=== PATIENT | male | born 1960 | race Caucasian/White ===

== ENCOUNTER 2019-09-14 21:36 | Inpatient (IN) ==
[2019-09-14] MEDS ORDERED: SODIUM CHLORIDE 0.9% 1000ML 2,000 ML IV SCH (22:00)
[2019-09-14 22:06] LABS: Basophils # (auto) 0.02 K/uL (0-0.2); Basophils % (auto) 0.1 %; Eosinophils # (auto) 0.25 K/uL (0-0.5); Eosinophils % (auto) 1.3 %; Hematocrit (blood only) 63.7 % (42-52); Hemoglobin 23.7 g/dL (14.0-18.0); Immature Granulocytes # (auto) 0.14 K/uL (0.00-0.02); Immature Granulocytes % (auto) 0.7 %; Lymphocytes # (auto) 2.23 K/uL (1.2-3.4); Lymphocytes % (auto) 11.4 %; Mean Corpuscular Hemoglobin 31.4 pg (25-34); Mean Corpuscular Volume 84.5 fL (80-100); Mean Platelet Volume 11.2 fL (7.4-10.4); Monocytes # (auto) 1.61 K/uL (0.11-0.59); Monocytes % (auto) 8.2 %; Neutrophils # (auto) 15.33 K/uL (1.4-6.5); Neutrophils % (auto) 78.3 %; Platelet Count 300 K/uL (130-400); RDW Coefficient of Variation 12.7 % (11.5-14.5); RDW Standard Deviation 38.6 fL (36.4-46.3); Red Blood Count 7.54 M/uL (4.7-6.1); White Blood Count 19.58 K/uL (4.8-10.8)
[2019-09-14 22:34] LABS: Mean Corpuscular Hgb Conc 37.2 g/dL (32-36)
--- NOTE | 2019-09-14 22:34 | XRay Report ---
XR chest 1V portable CLINICAL HISTORY: weakness COMPARISON STUDY: No previous studies for comparison. FINDINGS: The chest has an emphysematous configuration. The heart is normal in size. Interstitial pro minence towards the lung bases, likely represents vascular redistribution given the upper lobe emphys billy. There is no lobar consolidation. There are no significant pleural effusions.[ IMPRESSION: Suspected pulmonary emphysema. No evidence of focal pulmonary consolidation ACT 112: Negative or not required by law. Electronically signed by: Prasanna Fraser M.D. 09/14/2019 10:32 PM
[2019-09-14 22:36] LABS: Alanine Aminotransferase 50 U/L (12-78); Albumin Globulin Ratio 1.2 (0.9-2); Albumin Level 4.5 gm/dl (3.4-5.0); Alkaline Phosphatase 53 U/L (45-117); Aspartate Aminotransferase 27 U/L (15-37); BUN Creatinine Ratio 11.5 (10-20); Bilirubin,Total 0.7 mg/dl (0.2-1); Blood Urea Nitrogen 31 mg/dl (7-18); Carbon Dioxide 18 mmol/L (21-32); Chloride 97 mmol/L (98-107); Creatine Kinase 30 U/L (39-308); Creatinine Clr Calc Pharmacy 34.4 ml/min; Globulin 3.9 gm/dl (2.5-4.0); Glucose 212 mg/dl (70-99); Magnesium 1.6 mg/dl (1.8-2.4); Potassium 3.8 mmol/L (3.5-5.1); Sodium 132 mmol/L (136-145); Total Protein 8.4 gm/dl (6.4-8.2); Troponin I < 0.015 ng/ml (0-0.045)
[2019-09-14] MEDS ORDERED: MAGNESIUM SULFATE / D5W 1 GM/100 ML BAG IV ONE (22:53)
[2019-09-14 22:57] LABS: T4 Free Thyroxine < 0.10 ng/dl (0.8-1.6)
[2019-09-14 23:09] LABS: Base Excess ABG -3.6 mEq/L (-9-1.8); HCO3 ABG 20 mmol/L (19-24); Oxygen Saturation ABG 93.9 % (90-95); PCO2 ABG 32 mmHg (35-46); PO2 ABG 72 mm/Hg (80-95); pH ABG 7.41 (7.35-7.45)
[2019-09-14 23:10] LABS: Allen Test Pos (Pos)
--- NOTE | 2019-09-15 00:34 | History & Physical Report ---
Date of Service September 15, 2019 Assessment & Plan (1) Diarrhea: 59-year-old male was admitted on 15 September 2019 for diarrhea, acute kidney injury, and multiple electrolyte issues. Diarrhea, dehydration: Multiple non-bloody watery stools over past 3 to 4 days. Decreased urine output as well. No known fevers but has had sweats. Denies focal abdominal pain, known sick contacts, recent antibiotic use, recent travel. Anion gap 17. Multiple electrolyte abnormalities as below. - Will check lactate. Send stool culture, WBC, RBC, ova and parasites. Continue rehydration with LR. Elevated creatinine: Admit Cr 2.7. No comparisons available. May be all pre- renal given his diarrhea/dehydration. - Receiving IVF. Recheck in AM. Hyponatremia: Admit sodium 132. Unclear why given he appears overall dehydrated, though perhaps related to kidney injury. - Will check a serum Osm. Rehydrating. Hyperglycemia: Admit glucose 212. Question of history of same, not on meds for it. - Will order HbA1c. Deferred insulin sliding scale on admit, but might need it if noted to have DM or persistent elevated blood sugars. Hypomagnesemia: Admit Mg 1.6. Given replacement in ED. Recheck in AM. Hypoxia: Has history of COPD, smoked > 70 pack/yr, and worked in the coal industry for decades. Is on Stiolto at home. Patient does not complain of any worsening of his baseline respiratory status at all. Says he frequently is in the high 80s at home, does not want to be on oxygen during the day, but uses 2 L at night. - In ED, afebrile, borderline tachycardic, at times tachypneic, with initial room SpO2 of 87%. This improved on nasal cannula oxygen. WBC 19. Hemoglobin is 23, MCV 84, mono 1.61. ABG pH 7.41, pCO2 32, pO2 72, bicarb 20. Anion gap 17. TnI negative. EKG NSR 92 with PVCs. pCXR read as suspected pulmonary emphysema without evidence of focal pulmonary consolidation. - Does not seem to have an acute pulmonary issue. Continue home Stiolto. Goal SpO2 > 90% via [place] oxygen. Says he follows with pulmonology as an outpatient. Ongoing medical issues: - Hypertension, CAD, PVD: Continue home Coreg, zetia, rosuvastatin, fenofibrate. - Possible thyroid cancer: Admit TSH 7.88, Free T4 <0.10. Does not appear in thyroid storm. Patient says he has a nodule that is on track to be removed next week. Says he has not yet started prior sythroid rx. Will not start it here due to possible pending surgery. Code status: Full code. Diet: Regular. DVT prophy: Lovenox. PT/OT: Deferred. Disbo: Admit to [facility]. (2) Dehydration: (3) Elevated serum creatinine: (4) Hyponatremia: (5) Hyperglycemia: (6) Hypomagnesemia: (7) Hypoxia: (8) COPD (chronic obstructive pulmonary disease): (9) Hypertension: (10) CAD (coronary artery disease): (11) PVD (peripheral vascular disease): (12) Thyroid nodule: History of Present Illness Primary Care Provider: ADAM PCP 59-year-old male presents via EMS complaining of ongoing diarrhea. Patient says that he has had multiple non-bloody but watery stools over the past 3 to 4 days. He says he feels quite dehydrated and has had decreased urine output during this time. He started drinking some Pedialyte and was seen in an urgent care earlier today. Apparently he was recommended to stay hydrated but to go to the emergency room if his symptoms seem to worsen. His diarrhea persisted so he called an ambulance thinking they might be able to help. Instead they transferred him here. Presently, patient says he continues to have watery diarrhea. He denies any nausea or vomiting, focal abdominal pain, recent known sick contacts, recent antibiotic use, recent changes in his diet (seems to really prefer barbecue), or recent travel. No known fevers but did have some sweats earlier today. Otherwise he denies any other acute concerns. - When noted that he was hypoxic on arrival here, patient says that he sees both his primary care doctor in [place] as well as more recently a special order jeweler. He says he quit smoking at the beginning of this year but smoked 2 to 3 packs/day for 30+ years. 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 He was recently started on Stiolto which he takes regularly. He says he has not needed to use his rescue albuterol for at least 6 months now. Regarding his h ypoxia, he describes having a home pulse ox and that the numbers are frequently in the high 80s. He was apparently advised to be on oxygen during the day but ultimately decided to only use 2 L oxygen at night. He specifically denies any present or recent increase in difficulty breathing both at rest or with exertion as well as any chest discomfort. - On further review of history, patient states that he has a known thyroid nodule and is due to have a partial thyroidectomy next week. Apparently he was prescribed Synthroid recently but has not yet started taking it. He also notes a history of multiple stenting procedures both of his heart and of his groin about 15 years ago says that those areas have since "closed up". He denies any known history of renal disease. He does say that his doctor keeps track of his blood sugars but denies an overt diagnosis of diabetes. - Past medical history includes hypertension, CAD, PVD, possible thyroid cancer. - Past surgical history includes right carotid endarterectomy, right groin and iliac angioplasty with stenting, cataract surgery, appendectomy, cardiac stent. - Social history includes at least a [id number] smoking history. Denies a lcohol use. Lives at home with family. 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 Allergies Allergy/AdvReac Type Severity Reaction Status Date / Time No Known Allergies Allergy Unverified 09/14/19 23:00 Home Medications Home Medications Medication Instructions Recorded Confirmed Type Stiolto Respimat 1 puff INHALATION QAM 09/14/19 09/14/19 History ascorbic acid (vitamin C) 1 g PO QAM 09/14/19 09/14/19 History carvedilol 12.5 mg PO BID 09/14/19 09/14/19 History cholecalciferol (vitamin D3) 5,000 unit PO QAM 09/14/19 09/14/19 History ezetimibe 10 mg PO QAM 09/14/19 09/14/19 History fenofibrate nanocrystallized 145 mg PO QAM 09/14/19 09/14/19 History levothyroxine 88 mcg PO QAM 09/14/19 09/14/19 History multivitamin [Multiple Vitamins] 1 tab PO QAM 09/14/19 09/14/19 History omega 6-hci-ajx-fish oil [Fish Oil] 4 cap PO QAM 09/14/19 09/14/19 History rosuvastatin [Crestor] 20 mg PO QPM 09/14/19 09/14/19 History Past Med/Surg History Social History Preferred Language: [place] Communication Ability: Effective Telegraph Dispatcher Required: No Beliefs That Will Affect Care: None Current Living Situation: Spouse Feels Safe at Home: Yes Smoking Status: Former smoker Hx Alcohol Use: No Hx Substance Use: No Review of Systems Review of Systems: Constitutional: Denies fevers, chills, focal weakness Eyes: Denies any visual loss or diplopia ENT: Denies any ear/nose/throat pain or difficulty speaking or swallowing Respiratory: Denies any dyspnea, cough, hemoptysis Cardiovascular: Denies any chest pain or feeling of edema Gastrointestinal: Denies any abdominal pain. Denies nausea vomiting. Ongoing watery nonbloody diarrhea. Musculoskeletal: Denies any acute extremity pains, myalgias, or focal weakness Skin: Denies any known acute rashes or lesions Neuro: Denies any headache, acute focal weakness or numbness, or difficulties with speech or swallow. Physical Exam Physical Exam: GENERAL: Awake, alert, well-appearing, in no acute distress. HENT: Normocephalic, atraumatic. Oropharynx unremarkable. EYES: Normal conjunctiva. Sclera non-icteric. NECK: Inspection normal. Supple and full ROM. No nuchal rigidity. CARDIAC: +S1S2 RRR, no murmurs. RESPIRATORY: Clear to auscultation. No wheezes or rales. Normal respiratory effort. No present cough. Nasal cannula oxygen in place. GI: +BS, soft, non-distended. No tenderness to palpation. No rebound or guarding. EXTREMITIES: No pedal edema or calf tenderness. Moving all extremities naturally and easily. NEURO: No gross neuro deficits. Results & Data Vital Signs (Past 12 Hours) Vital Signs Temp Pulse Pulse Resp BP BP Pulse Ox 09/15/19 00:26 92 H 26 H 120/85 90 09/14/19 22:30 95 H 26 H 121/71 94 09/14/19 21:50 36.6 C 104 H 104 H 12 109/74 109/74 87 L Laboratory Results 09/14/19 09/14/1919 Range/Units 22:59 21:42 21:42 WBC 19.58 H (4.8-10.8) K/uL RBC 7.54 H (4.7-6.1) M/uL Hgb 23.7 H (14.0-18.0) g/dL Hct 63.7 H (42-52) % MCV 84.5 (80-100) fL MCH 31.4 (25-34) pg MCHC 37.2 H (32-36) g/dL RDW Std Deviation 38.6 (36.4-46.3) fL RDW Coeff of Daniel 12.7 (11.5-14.5) % Plt Count 300 (130-400) K/uL MPV 11.2 H (7.4-10.4) fL Immature Gran % (Auto) 0.7 % Neut % (Auto) 78.3 % Lymph % (Auto) 11.4 % [place] % (Auto) 8.2 % Eos % (Auto) 1.3 % Baso % (Auto) 0.1 % Immature Gran # (Auto) 0.14 H (0.00-0.02) K/uL Neut # (Auto) 15.33 H (1.4-6.5) K/uL Lymph # (Auto) 2.23 (1.2-3.4) K/uL [place] # (Auto) 1.61 H (0.11-0.59) K/uL Eos # (Auto) 0.25 (0-0.5) K/uL Baso # (Auto) 0.02 (0-0.2) K/uL ABG pH 7.41 (7.35-7.45) ABG pCO2 32 L (35-46) mmHg ABG pO2 72 L (80-95) mm/Hg ABG HCO3 20 (19-24) mmol/L ABG O2 Saturation 93.9 (90-95) % ABG Base Excess -3.6 (-9-1.8) mEq/L Alo Test Pos (Pos) Barometric Pressure 733.0 mm/Hg Oxygen Given 4L Sodium 132 L (136-145) mmol/L Potassium 3.8 (3.5-5.1) mmol/L Chloride 97 L (98-107) mmol/L Carbon Dioxide 18 L (21-32) mmol/L Anion Gap 17.0 H (3-11) BUN 31 H (7-18) mg/dl Creatinine 2.70 H (0.6-1.4) mg/dl Est Cr Clr Drug Dosing 34.4 ml/min Est GFR ( Amer) 29.0 Est GFR (Non-Af Amer) 25.0 BUN/Creatinine Ratio 11.5 (10-20) Glucose 212 H (70-99) mg/dl Calcium 10.0 (8.5-10.1) mg/dl Magnesium 1.6 L (1.8-2.4) mg/dl Total Bilirubin 0.7 (0.2-1) mg/dl AST 27 (15-37) U/L ALT 50 (12-78) U/L Alkaline Phosphatase 53 (45-117) U/L Total Creatine Kinase 30 L (39-308) U/L Troponin I < 0.015 (0-0.045) ng/ml Total Protein 8.4 H (6.4-8.2) gm/dl Albumin 4.5 (3.4-5.0) gm/dl Globulin 3.9 (2.5-4.0) gm/dl Albumin/Globulin Ratio 1.2 (0.9-2) TSH 7.880 H (0.300-4.500) uIu/ml Free T4 < 0.10 L (0.8-1.6) ng/dl Medications Administered Discontinued Medications Sodium Chloride (Nss 1000ml) 2,000 mls @ 999 mls/hr IV .Q2H1M [facility] Stop: 09/15/19 00:00 Last Admin: 09/14/19 22:06 Dose: 999 mls/hr Documented by: [id number] Magnesium Sulfate/Dextrose (Magnesium Sulfate / D5w) 1 gm in 100 mls @ 100 mls/hr IV ONE ONE Stop: 09/14/19 23:52 Last Admin: 09/14/19 23:18 Dose: 100 mls/hr Documented by: [id number] Code Status & VTE Plan Code Status Full code VTE Prophylaxis Plan VTE Prophylaxis will be ordered: Yes Supervising Physician Co-Signing Physician Notes Attending addendum: I have physically seen this patient, have supervised the medical residents activities, and agree with the H&P unless as otherwise noted. Assessment and Plan: Kidney injury/presumptive acute, no baseline laboratories for comparison- Creatinine 2.70 upon admission, with magnesium 1.6 and sodium 132. Rehydrate with IV fluids. Give magnesium sulfate 2 g IV. Repeat BMP and magnesium levels in a.m. Diarrheal illness of 3 to 4 days duration- Order stool studies, C. difficile and stool cultures, O&P. 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 Target pulse ox 92%. Does use 2 L oxygen at nighttime. Following with pulmonology as outpatient. No acute issues. Continue usual regimen. Remainder of orders and notations as noted. Resident Activity Tracking Resident Involvement: Resident Care Provided Care Provided: Adult Hospital Medicine
--- NOTE | 2019-09-15 01:11 | Emergency Department Note ---
History of Present Illness General Chief complaint: Illness Stated complaint: DIARRHEA, WEAKNESS History of Present Illness Maximum Pain Intensity: 0 This 59-year-old presents to the ER complaining of weakness and diarrhea Location: Generalized Quality: Weak Severity: Severe Duration: Past 2 days Timing: Started 2 days ago Context: Symptoms got worse and patient came in Modifying factors: better with rest; worse with activity Patient's had numerous episodes of diarrhea. He felt quite weak and nearly passed out so he summoned EMS. No recent antibiotics. No well water. Patient denies chest pain, dyspnea, abdominal pain, vomiting, fever, chills. He states he was recently diagnosed with thyroid cancer and is is to have a thyroidectomy done next week in [place]. Patient has COPD and is suppose to be chronically wearing O2 but does not. Home Medications Home Medications Medication Instructions Recorded Confirmed Type ascorbic acid (vitamin C) 1 g PO QAM 09/14/19 09/14/19 History carvedilol 12.5 mg PO BID 09/14/19 09/14/19 History cholecalciferol (vitamin D3) 5,000 unit PO QAM 09/14/19 09/14/19 History ezetimibe 10 mg PO QAM 09/14/19 09/14/19 History fenofibrate nanocrystallized 145 mg PO QAM 09/14/19 09/14/19 History levothyroxine 88 mcg PO QAM 09/14/19 09/14/19 History multivitamin [Multiple Vitamins] 1 tab PO QAM 09/14/19 09/14/19 History omega 9-slj-ubh-fish oil [Fish Oil] 4 cap PO QAM 09/14/19 09/14/19 History rosuvastatin [Crestor] 20 mg PO QPM 09/14/19 09/14/19 History tiotropium-olodaterol [Stiolto 1 puff INHALATION QAM 09/14/19 09/14/19 History Respimat] Allergies Allergy/AdvReac Type Severity Reaction Status Date / Time No Known Allergies Allergy Unverified 09/14/19 23:00 Past Med/Surg History Social History Feels Safe at Home: Yes Smoking Status: Former smoker Review of Systems A total of 10 systems reviewed and were otherwise negative Physical Exam Vital Signs Vital Signs - 24 hr 09/14/19 21:50 09/14/19 21:59 09/14/19 22:05 Temperature 36.6 C Temperature Source Oral Pulse Rate - Lying 100 H Pulse Rate - Sitting 104 H Pulse Rate - Standing 115 H Pulse Rate 104 H Pulse Rate [Finger] 104 H Pulse Rate from SpO2 Sensor Pulse Rhythm [Finger] Pulse Strength [Finger] Respiratory Rate 12 Respiratory Effort / Characteristics Respiratory Depth Respiratory Pattern Blood Pressure - Lying 103/72 Blood Pressure - Sitting 94/81 L Blood Pressure- Standing 80/69 L Blood Pressure 109/74 Blood Pressure [Left Arm] 109/74 Blood Pressure Mean 85 Blood Pressure Mean [Left Arm] 85 Blood Pressure Position [Left Arm] Pulse Oximetry 87 L Oxygen Delivery Method Room Air Nasal Cannula Oxygen Flow Rate 4 Sepsis Recent Fever Within 48 Hours No Sepsis New/Unexplained Change in Mental Status No Sepsis Action Taken by Nursing No Action Required 09/14/19 22:30 09/15/19 00:26 Temperature Temperature Source Pulse Rate - Lying Pulse Rate - Sitting Pulse Rate - Standing Pulse Rate 95 H Pulse Rate [Finger] 92 H Pulse Rate from SpO2 Sensor 85 Pulse Rhythm [Finger] Regular Pulse Strength [Finger] Normal Respiratory Rate 26 H 26 H Respiratory Effort / Characteristics Non-Labored Spontaneous Respiratory Depth Normal Respiratory Pattern Regular Blood Pressure - Lying Blood Pressure - Sitting Blood Pressure- Standing Blood Pressure 121/71 Blood Pressure [Left Arm] 120/85 Blood Pressure Mean 92 Blood Pressure Mean [Left Arm] 96 Blood Pressure Position [Left Arm] Lying Pulse Oximetry 94 90 Oxygen Delivery Method Nasal Cannula Nasal Cannula Oxygen Flow Rate 4 Sepsis Recent Fever Within 48 Hours Sepsis New/Unexplained Change in Mental Status Sepsis Action Taken by Nursing VITALS: Vitals are noted on the nurse's note and reviewed by myself. Vital signs stable. GENERAL: White male dehydrated appearing, in no acute distress, nondiaphoretic, well-developed well-nourished. SKIN: The skin was without rashes, erythema, edema, or bruising. There is no tenting of the skin. Capillary reflex less than 2 seconds. HEAD: Normocephalic atraumatic. EARS: External auditory canals clear, tympanic membranes pearly rome without erythema or effusion bilaterally. EYES: Pupils equal round and reactive to light and accommodation. Conjunctivae without injection, sclerae without icterus. Extraocular movements intact. NOSE: Patent, turbinates without inflammation or discharge. MOUTH: Mucous membranes dry. Pharynx without erythema or exudate. Uvula midline. Airway patent. Tongue does not deviate. NECK: Supple without nuchal rigidity. No lymphadenopathy. No thyromegaly. Cervical spine is nontender. No JVD. HEART: Regular rate and rhythm LUNGS: Clear to auscultation bilaterally without wheezes, rales or rhonchi. No retractions or accessory muscle use. ABDOMEN: Positive bowel sounds x 4. Normal tympanic percussion. Soft, nontender, without masses or organomegaly. Monteiro sign negative. No guarding or rebound tenderness. No CVA tenderness MUSCULOSKELETAL: No muscle atrophy, erythema, or edema noted. NEURO: Patient was alert and oriented to person place and time. Normal sensation to light and sharp touch. No focal neurological deficits. Course Administered Medications Discontinued Medications Sodium Chloride (Nss 1000ml) 2,000 mls @ 999 mls/hr IV .Q2H1M [facility] Stop: 09/15/19 00:00 Last Admin: 09/14/19 22:06 Dose: 999 mls/hr Documented by: [id number] Magnesium Sulfate/Dextrose (Magnesium Sulfate / D5w) 1 gm in 100 mls @ 100 mls/hr IV ONE ONE Stop: 09/14/19 23:52 Last Admin: 09/14/19 23:18 Dose: 100 mls/hr Documented by: [id number] Medical Decision Making Medical Records Attestation: I reviewed the patient's medical records. Home Medications Current Medication List: was personally reviewed by me Laboratory Data Attestation: I reviewed the patient's lab results. Result diagrams: 09/14/19 21:42 09/14/19 21:42 Lab Results 09/14/19 09/14/19 09/14/19 Range/Units 21:42 21:42 22:59 WBC 19.58 H (4.8-10.8) K/uL RBC 7.54 H (4.7-6.1) M/uL Hgb 23.7 H (14.0-18.0) g/dL Hct 63.7 H (42-52) % MCV 84.5 (80-100) fL MCH 31.4 (25-34) pg MCHC 37.2 H (32-36) g/dL RDW Std Deviation 38.6 (36.4-46.3) fL RDW Coeff of Daniel 12.7 (11.5-14.5) % Plt Count 300 (130-400) K/uL MPV 11.2 H (7.4-10.4) fL Immature Gran % (Auto) 0.7 % Neut % (Auto) 78.3 % Lymph % (Auto) 11.4 % [place] % (Auto) 8.2 % Eos % (Auto) 1.3 % Baso % (Auto) 0.1 % Immature Gran # (Auto) 0.14 H (0.00-0.02) K/uL Neut # (Auto) 15.33 H (1.4-6.5) K/uL Lymph # (Auto) 2.23 (1.2-3.4) K/uL [place] # (Auto) 1.61 H (0.11-0.59) K/uL Eos # (Auto) 0.25 (0-0.5) K/uL Baso # (Auto) 0.02 (0-0.2) K/uL ABG pH 7.41 (7.35-7.45) ABG pCO2 32 L (35-46) mmHg ABG pO2 72 L (80-95) mm/Hg ABG HCO3 20 (19-24) mmol/L ABG O2 Saturation 93.9 (90-95) % ABG Base Excess -3.6 (-9-1.8) mEq/L Alo Test Pos (Pos) Barometric Pressure 733.0 mm/Hg Oxygen Given 4L Sodium 132 L (136-145) mmol/L Potassium 3.8 (3.5-5.1) mmol/L Chloride 97 L (98-107) mmol/L Carbon Dioxide 18 L (21-32) mmol/L Anion Gap 17.0 H (3-11) BUN 31 H (7-18) mg/dl Creatinine 2.70 H (0.6-1.4) mg/dl Est Cr Clr Drug Dosing 34.4 ml/min Est GFR ( Amer) 29.0 Est GFR (Non-Af Amer) 25.0 BUN/Creatinine Ratio 11.5 (10-20) Glucose 212 H (70-99) mg/dl Calcium 10.0 (8.5-10.1) mg/dl Magnesium 1.6 L (1.8-2.4) mg/dl Total Bilirubin 0.7 (0.2-1) mg/dl AST 27 (15-37) U/L ALT 50 (12-78) U/L Alkaline Phosphatase 53 (45-117) U/L Total Creatine Kinase 30 L (39-308) U/L Troponin I < 0.015 (0-0.045) ng/ml Total Protein 8.4 H (6.4-8.2) gm/dl Albumin 4.5 (3.4-5.0) gm/dl Globulin 3.9 (2.5-4.0) gm/dl Albumin/Globulin Ratio 1.2 (0.9-2) TSH 7.880 H (0.300-4.500) uIu/ml Free T4 < 0.10 L (0.8-1.6) ng/dl Imaging Data Attestation: I personally reviewed and interpreted this imaging study as follows: MDM Narrative Prior records/ancillary studies reviewed and summarized above. Nursing notes reviewed. Additional history obtained from family. The patient's history was concerning for diarrhea and weakness. Differential diagnosis: Etiologies such as metabolic, infection, hypo/hyperglycemia, electrolyte abnormalities, cardiac sources, intracerebral event, toxicologic, neurologic, as well as others were entertained. Physical examination: As above. ER treatment provided: IV Lock IV fluids, magnesium On reassessment the patient felt better. Diagnostics interpretation by me: ECG: Ordered for weakness Normal sinus, occasional PVC, ST depressions in the lateral leads, rate of 92. No old EKG. Impression normal sinus rhythm with occasional PVC with ST depression lateral leads interpreted by myself. Repeat EKG is unchanged. I think arrhythmia is unlikely. EKG shows normal sinus rhythm with no interval abnormalities such as QT prolongation or WPW. There are no findings to suggest Brugada syndrome. Cardiac monitoring in the emergency department reveals no tachycardic or bradycardic dysrhythmia. Hypertrophic cardiomyopathy was considered but there are no clear historical elements pointing toward this. EKG is not suggestive. The QRS voltage is not extremely large and there are no suggestive Q waves. The labs revealed leukocytosis, hypomagnesia and this was replaced intravenously, elevated TSH. Patient has known thyroid cancer and is on thyroid medicine. Acute kidney injury Imaging studies: XR chest 1V portable CLINICAL HISTORY: weakness COMPARISON STUDY: No previous studies for comparison. FINDINGS: The chest has an emphysematous configuration. The heart is normal in size. Interstitial prominence towards the lung bases, likely represents vascular redistribution given the upper lobe emphysema. There is no lobar consolidation. There are no significant pleural effusions.[ IMPRESSION: Suspected pulmonary emphysema. No evidence of focal pulmonary consolidation ACT 112: Negative or not required by law. Electronically signed by: Prasanna Fraser M.D. 09/14/2019 10:32 PM Dictated: 09/14/19 [id number] Consultation: A consultation was placed with the hospitalist, Dr. Tabor. The case was discussed and diagnostics were reviewed. The patient was evaluated in the ER for further treatment. Exam and history seem consistent with acute kidney failure, dehydration, low magnesium. Patient was hydrated as above. Magnesium was given. Patient is agr eeable treatment plan of admission. I did obtain some records from [facility] and patient's EKG is unchanged. No blood work was sent. By the evaluation outlined above emergent etiologies such as infection, cardiac sources, intracerebral event, toxologic, neurologic, abnormalities blood glucose, as well as others were deemed relatively unlikely. The pt informed about the findings as listed above. All questions were answered and pleased with the treatment. Case reviewed with my attending The chart was completed utilizing [employer] Speech voice recognition software. Grammatical errors, random word insertions, pronoun errors, and incomplete sentences are an occassional consequence of this system due to software limitations, ambient noise, and hardware issues. Any formal questions or concerns about the content, text, or information contained within the body of this dictation should be directly addressed to the physician medical assistant secretary for clarification. Impression & Plan Acute kidney failure, Diarrhea, Dehydration, Hypomagnesemia Discharge Plan Visit Data Chief Complaint: Illness Stated Complaint: DIARRHEA, WEAKNESS ED Provider: Clyde Marlow ED Midlevel Provider: Fely Gann Discharge Problem: Acute kidney failure, Diarrhea, Dehydration, Hypomagnesemia Patient Disposition: Being Evaluated by Hospitalist Condition: Fair Discharge Instructions Interventions: ED Discharge Assessment Last Done: 09/15/19 00:53
[2019-09-15] MEDS ORDERED: ONDANSETRON INJ 2 MG/ML 2 ML VIAL IV PRN (01:28)
[2019-09-15] MEDS: LACTATED RINGER'S 1,000 ML IV SCH ×3 (01:32→15:03)
[2019-09-15 06:06] LABS: BUN Creatinine Ratio 16.3 (10-20); Calcium 8.7 mg/dl (8.5-10.1); Creatinine Clr Calc Pharmacy 46.2 ml/min; Est GFR (African American) 41.5; Est GFR (Non-African American) 35.8; Magnesium 1.7 mg/dl (1.8-2.4); Phosphorus 5.1 mg/dl (2.5-4.9); Potassium 3.8 mmol/L (3.5-5.1)
[2019-09-15 06:07] LABS: Basophils # (auto) 0.03 K/uL (0-0.2); Basophils % (auto) 0.2 %; Eosinophils % (auto) 2.2 %; Hematocrit (blood only) 54.7 % (42-52); Hemoglobin 20.2 g/dL (14.0-18.0); Immature Granulocytes # (auto) 0.14 K/uL (0.00-0.02); Immature Granulocytes % (auto) 0.8 %; Lymphocytes # (auto) 2.84 K/uL (1.2-3.4); Lymphocytes % (auto) 15.3 %; Mean Corpuscular Hemoglobin 31.6 pg (25-34); Mean Corpuscular Hgb Conc 36.9 g/dL (32-36); Mean Corpuscular Volume 85.6 fL (80-100); Mean Platelet Volume 10.5 fL (7.4-10.4); Monocytes # (auto) 2.18 K/uL (0.11-0.59); Monocytes % (auto) 11.7 %; Neutrophils % (auto) 69.8 %; Platelet Count 244 K/uL (130-400); RDW Coefficient of Variation 12.6 % (11.5-14.5); RDW Standard Deviation 39.6 fL (36.4-46.3); Red Blood Count 6.39 M/uL (4.7-6.1); White Blood Count 18.59 K/uL (4.8-10.8)
[2019-09-15 06:10] LABS: Estimated Average Glucose 128 mg/dl; Hemoglobin A1C 6.1 % (4.5-5.6)
[2019-09-15 07:42] VITALS: TEMP 97.3; O2SAT 90
[2019-09-15] MEDS ORDERED: ENOXAPARIN INJ 40 MG/0.4 ML SYR SQ SCH (08:00)
[2019-09-15] MEDS ORDERED: MULTIVITAMIN TAB PO SCH (09:00)
[2019-09-15] MEDS ORDERED: FENOFIBRATE NANOCRYSTALLIZED 145 MG TABLET PO SCH (09:00)
[2019-09-15] MEDS ORDERED: carvediloL 12.5 MG TAB PO SCH (09:00)
[2019-09-15] MEDS ORDERED: EZETIMIBE 10 MG TABLET PO SCH (09:00)
[2019-09-15] MEDS: STIOLTO~ORDER AWAITING ACTION SCH ×2 (09:06→17:07)
[2019-09-15 13:10] LABS: Hematocrit (blood only) 53.3 % (42-52); Hemoglobin 19.8 g/dL (14.0-18.0); Mean Corpuscular Hemoglobin 31.1 pg (25-34); Mean Corpuscular Hgb Conc 37.1 g/dL (32-36); Mean Corpuscular Volume 83.8 fL (80-100); Mean Platelet Volume 10.8 fL (7.4-10.4); Platelet Count 260 K/uL (130-400); RDW Coefficient of Variation 12.7 % (11.5-14.5); RDW Standard Deviation 38.1 fL (36.4-46.3); Red Blood Count 6.36 M/uL (4.7-6.1); White Blood Count 18.05 K/uL (4.8-10.8)
[2019-09-15 13:40] LABS: Calcium 9.1 mg/dl (8.5-10.1); Creatinine Clr Calc Pharmacy 57.4 ml/min; Est GFR (African American) 53.8; Est GFR (Non-African American) 46.4; Potassium 3.4 mmol/L (3.5-5.1)
[2019-09-15] MEDS ORDERED: IOVERSOL 100ml IV PRN (17:00)
[2019-09-15 17:26] VITALS: PULSE 83
--- NOTE | 2019-09-15 17:43 | CT Scan Report ---
CT SCAN OF THE ABDOMEN AND PELVIS WITH IV CONTRAST CLINICAL HISTORY: Diarrhea. COMPARISON STUDY: No priors. TECHNIQUE: Following the IV administration of 93 cc of Optiray 320, CT scan of the abdomen and pelvi s is performed from the lung bases to the proximal femora. Images are reviewed in the axial, sagittal , and coronal planes. IV contrast was administered without complication. A dose lowering technique wa s utilized adhering to the principles of ALARA. CT DOSE: 750.21 mGy.cm FINDINGS: Lung bases: The heart is normal in size and without pericardial effusion. Advanced emphysematous diego ge is noted at the lung bases. Scarring/atelectasis is noted in the lingula. There is no airspace con solidation typical for pneumonia or pleural effusion. There is a tiny hiatal hernia. Liver: The contrast-enhanced liver is top normal in size and demonstrates diffusely diminished attenu ation consistent with hepatic steatosis. There is no intrahepatic biliary ductal dilatation. The hepa tic veins and portal veins are patent. Gallbladder: There are numerous calcified gallstones with no CT evidence of acute cholecystitis. Spleen: Normal in size and attenuation. Pancreas: Unremarkable. Adrenal glands: Unremarkable. Kidneys: The contrast enhanced kidneys are normal in size and without hydronephrosis. The kidneys enh ance symmetrically. There is a 2 cm cyst in the upper pole of the left kidney. Additional subcentimet er cortical hypodensities also likely represent cysts but are too small for definitive characterizati on. Abdominal vasculature: There is advanced atherosclerotic calcification of the abdominal aorta and mir ac arteries. Bilateral iliac artery stents are in place. The left iliac stent extends to the distal e xternal iliac artery. Extensive soft plaque is seen throughout the abdominal aorta with extensive hig h-grade stenosis. There is near complete occlusion of the infrarenal abdominal aorta with only trace flow seen on image #172. Both iliac artery stents appear largely occluded. There is reconstitution of flow in left within the distal aspect of the external iliac artery stent. There is reconstitution of flow in the right within the proximal external iliac artery. The origin of the inferior mesenteric a rtery is occluded. This is reconstituted, likely via retrograde flow. The superior mesenteric artery and celiac artery are patent. Bowel: There is no bowel obstruction. Liquid stool is noted throughout the colon. There is no wall th ickening or pericolonic inflammation. There is no pneumatosis intestinalis or portal venous gas. Ther e is focal narrowing of the proximal descending colon seen just below the splenic flexure on image #1 [id number]. The appendix is not identified and reported surgically absent. Peritoneum: There is no intraperitoneal free air or abdominal ascites. Lymphadenopathy: None. Pelvic viscera: The prostate gland is mildly enlarged and heterogeneous. The bladder is mildly disten ded but otherwise normal in appearance Skeletal structures: The skeletal structures are osteopenic. There is mild lumbosacral spondylosis. A large disc bulge is noted at L4-L5. No lytic or blastic lesions are seen. IMPRESSION: 1. Liquid stool is noted throughout the colon. Correlate clinically for evidence of a diarrheal illne ss. There is no colonic wall thickening or pericolonic inflammation. No pneumatosis intestinalis or p ortal venous gas is seen. 2. Advanced emphysema. 3. There is advanced atherosclerotic plaque throughout the abdominal aorta and iliac arteries. There is near complete thrombosis of the infrarenal abdominal aorta secondary to soft plaque. 4. Bilateral iliac artery stents are in place. Both stents appear thrombosed with distal reconstituti on as detailed above. 5. 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 The superior mesenteric artery and celiac axis are patent. 6. Cholelithiasis. 7. Hepatic steatosis. 8. There is focal narrowing of the proximal descending colon. This is of indeterminate significance, and if not recently performed follow-up colonoscopy is recommended to exclude mucosal lesion. 9. Additional findings as above. ACT 112: Positive. There are findings on this exam that require communication between the performing entity and the patient following Patient Test Result Information Act ([place] Act 112) guidelines. Electronically signed by: Sim Flores M.D. 09/15/2019 5:42 PM
[2019-09-15 18:29] VITALS: BP 112/78
--- NOTE | 2019-09-15 18:29 | Discharge Summary ---
Date of Service September 15, 2019 Admission HPI Per Admitting Provider 59-year-old male presents via EMS complaining of ongoing diarrhea. Patient says that he has had multiple non-bloody but watery stools over the past 3 to 4 days. He says he feels quite dehydrated and has had decreased urine output during this time. He started drinking some Pedialyte and was seen in an urgent care earlier today. Apparently he was recommended to stay hydrated but to go to the emergency room if his symptoms seem to worsen. His diarrhea persisted so he called an ambulance thinking they might be able to help. Instead they transferred him here. Presently, patient says he continues to have watery diarrhea. He denies any nausea or vomiting, focal abdominal pain, recent known sick contacts, recent antibiotic use, recent changes in his diet (seems to really prefer barbecue), or recent travel. No known fevers but did have some sweats earlier today. Otherwise he denies any other acute concerns. 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 He says he quit smoking at the beginning of this year but smoked 2 to 3 packs/day for 30+ years. 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 He was recently started on Stiolto which he takes regularly. He says he has not needed to use his rescue albuterol for at least 6 months now. Regarding his hypoxia, he describes having a home pulse ox and that the numbers are frequently in the high 80s. He was apparently advised to be on oxygen during the day but ultimately decided to only use 2 L oxygen at night. He specifically denies any present or recent increase in difficulty breathing both at rest or with exertion as well as any chest discomfort. - On further review of history, patient states that he has a known thyroid nodule and is due to have a partial thyroidectomy next week. Apparently he was prescribed Synthroid recently but has not yet started taking it. He also notes a history of multiple stenting procedures both of his heart and of his groin about 15 years ago says that those areas have since "closed up". He denies any known history of renal disease. He does say that his doctor keeps track of his blood sugars but denies an overt diagnosis of diabetes. - Past medical history includes hypertension, CAD, PVD, possible thyroid cancer. - Past surgical history includes right carotid endarterectomy, right groin and iliac angioplasty with stenting, cataract surgery, appendectomy, cardiac stent. - Social history includes at least a 74-[id number]-oday smoking history. Denies alcohol use. Lives at home with family. 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 Principal Diagnosis Diarrhea; Dehydration Discharge Exam Constitutional WD/WN, vitals as above Eyes + anicteric sclerae ENMT Ears: no hearing impairment Neck trachea midline Respiratory normal respiratory effort, lungs clear to auscultation Cardiovascular RRR, no murmur, no edema Gastrointestinal (Abdomen) Inspection/Auscultation: normal bowel sounds Percussion/Palpation: abdomen soft; abdomen nontender, no guarding and abdomen not rigid Musculoskeletal no cyanosis or clubbing, extremities motor strength 5/5 Head/Neck/Chest: normocephalic and head atraumatic Skin no rashes, warm and dry Neurologic moves all extremities Psychiatric A+Ox3, euthymic affect Discharge Data Allergies Allergy/AdvReac Type Severity Reaction Status Date / Time No Known Allergies Allergy Unverified 09/14/19 23:00 Consultations 09/14/19 22:53 ED Decision to Admit Stat Ordered Studies 09/15/19 16:37 CT abd pelvis IV con only Urgent Hospital Course (1) Diarrhea: - Uncertain the etiology of this - clinically looks well and has no reported abdominal pain and no pain is reproduced on deep palpation - possibly simple viral enteritis -- No recent abx, travel, camping, new foods, known food intolerances, other sick contacts - States he has been eating more BBQ from a new restuarant but all family members have eaten this without symptoms - Does have leukocytosis at 18 but has trended down with fluids alone - procalcitonin is 0.8 but not a significant finding; c. diff is negative and overall diarrhea is improving - Given his vascular history a CT was performed - again he is having no abdominal pain but did have concern for ischemic colitis -- CT with liquid stool throughout colon however no colonic/pericolonic inflammation/wall thickening. No pneumatosis intestinalis/portal venous gas seen; advanced atherosclerotic plaque throughout aorta/iliac arteries with near complete thrombosis of infrarenal abdominal aorta; iliac stents that are thrombosed with distal reconstitution; also thrombosis of origin of inferior mesenteric artery which is reconstituted; cholelithiasis; hepatic steatosis; and focal narrowing of descending colon which is nonspecific - Reports colonoscopy three years ago and was told he will need a F/U one at the 10 year deejay and no abnormality - Diarrhea is improving but still about 5-6 episodes a day - advised patient to monitor this and if feeling worse to be checked out as this should be self- limiting (2) Acute kidney failure: - Pre-renal given dehydration from diarrhea - Cr 2.7 on admission and currently at 1.6 and producing urine adequately - Electrolytes stable; will provide Rx for recheck of CBC and BMP in 3-[address] Dixon (3) Thyroid nodule: - Has pre-surgical evaluation on Saturday - suspect thyroid cancer - TSH currently 7.880 with low T4 - on Synthroid and will not adjust given upcoming surgery and following with specialist (4) PVD (peripheral vascular disease): - Significant H/O stenting, endarterectomy, HLD - follows with a specialist and should continue to follow - As discussed in CT above continues to have significant athersclerotic changes - discussed continuing his cholesterol medications. His A1c is 6.1 which is great but to continue to work on diet/exercise modifications to reduce risks - He reports taking once weekly baby ASA. States he used to take this daily but due to bruising he reduced this to every other day and so on and reports only tolerating once weekly Total Time Total Time Spent Total Time Spent (In Minutes): Greater than 30 minutes Discharge Plan Discharge Items Patient Disposition: Home - Self-Care Reason For Visit: DIARRHEA, DEHYDRATION, ALEXANDER, HYPOXIA Discharge Diagnosis: Diarrhea, Dehydration Condition on Discharge: Fair Activity: Resume your previous activity Non-emergency contact: Primary Care Provider Call non-emergency contact if: you have any medication questions, your symptoms worsen and you have a fever Follow-up/Referrals: PCP,NO [Primary Care Provider] - Diet: Regular Addtl Attending Provider Instructions: Diarrhea: - It is possible this is a viral GI bug causing your diarrhea. We do have stool cultures to assess for other infectious causes of diarrhea. So far they are negative but we will keep an eye for any new growth - Thankfully the diarrhea is improving and may take a few more days to normalize. The forrest will be to keep hydrated while the diarrhea continues. - We did check you for c. diff which is a intestinal infection that can cause severe diarrhea but this was negative as well - You had a CAT scan of your abdomen which shows a lot of diarrhea still present in the colon. Thankfully there is no wall thickening or inflammation of the intestines. No signs of lack of blood flow to the intestines - At this time we are not going to use antibiotics and will watch. If you cultures show something needing medications we will call you. Your symptoms should improve in the coming days but if you feel like you are getting worse please get checked out - You were given a prescription to have lab work done and the results can go to your family doctor. These labs can be drawn anywhere you normally get labs The CAT scan does show some plaque (cholesterol/blockages) in the arteries near where you have had stents and other vessels. Would recommend you continue to follow with your doctor who did the stents. Continue your baby aspirin. If it is tolerated you can see if you can take it more than once a week but this can be discussed with your doctor. Dehydration: - Thankfully with fluids your labs are improving. - Your kidney number went from 2 to 1.6 with normal being around 1.4 so this was all due to dehydration and responded nicely with fluids. Recommend to keep drinking fluids with the goal of having pale yellow/clear urine as this is the best way to determine hydration - Your electrolytes are looking better as well. Sugars: - Your A1c is 6.1 so you are not diabetic but it will be important to continue to watch your diet and continue to exercise to keep this from becoming diabetes. Your family doctor can continue to monitor Pending Studies at Discharge: Yes Studies:: Stool cultures - will continue to monitor Stand-Alone Forms: [facility], Smoking Cessation Medications and DC Order Prescriptions: Continued rosuvastatin [Crestor] 20 mg Tablet 20 mg PO QPM RF: 0 fenofibrate nanocrystallized 145 mg Tablet 145 mg PO QAM RF: 0 carvedilol 12.5 mg Tablet 12.5 mg PO BID RF: 0 levothyroxine 88 mcg Tablet 88 mcg PO QAM RF: 0 ezetimibe 10 mg Tablet 10 mg PO QAM RF: 0 Stiolto Respimat 2.5-2.5 mcg/actuation Mist 1 puff INHALATION QAM RF: 0 ascorbic acid (vitamin C) 1,000 mg Tablet 1 g PO QAM RF: 0 cholecalciferol (vitamin D3) 5,000 unit Capsule 5,000 unit PO QAM RF: 0 omega 8-vob-hff-fish oil [Fish Oil] 1,000 mg (120 mg-180 mg) Capsule 4 cap PO QAM RF: 0 multivitamin [Multiple Vitamins] Tablet 1 tab PO QAM RF: 0 Discharge Orders: Discharge Order (Routine); Ordered 09/15/19 Ordered By: Landy Haney Admission Data Admit Date/Time: 09/15/19 00:19 Attending Provider: Teddy Peters Admit Provider: Cristian Pagan Primary Care Provider: PCP,NO Other Providers: Alexis Centeno Other Interventions: Discharge Summary Assessment (RN) Last Done: 09/15/19 18:27
[2019-09-15] MEDS ORDERED: ROSUVASTATIN CALCIUM 20 MG TAB PO SCH (21:00)
--- NOTE | 2019-09-16 04:29 | Billing Data ---
Date of Service September 16, 2019 Coding Level of Care Code 32955 Initial Inpt Care Lvl 3
== END 2019-09-15 21:10 | disposition home or self-care (01) | DRG 392 ==
LOC: ED 21:36 → 4W 09-15 00:19 → SUATTDRO 09-15 00:19 → 4W 09-15 00:53